=== PATIENT | male | born 1965 | race Caucasian/White ===

== ENCOUNTER 2018-05-20 12:21 | Emergency (ER) | END 2018-05-20 14:29 | disposition home or self-care (01) ==

== ENCOUNTER 2018-11-19 13:30 | Emergency (ER) | payer MEDICAID ==
[~2018-11-19] VITALS: Ht 180.3 cm; Wt 103.4 kg
[~2018-11-19 13:30] MED LIST: CAPT50TA3 PO
[2018-11-19 13:32] VITALS: Ht 180.3 cm; Wt 103.4 kg
--- NOTE | 2018-11-19 14:07 | ERD ---
ER Documentation Chief Complaint Chief Complaint right abdominal pain radiating to back since yesterday HPI 53-year-old male with hypertension presenting with complaints of right flank and right upper quadrant abdominal pain. His pain started last night but seems to have resolved by now. However he is concerned and would like evaluation. He denies any associated nausea, vomiting, fever, chills, cough, hemoptysis. No constipation or diarrhea. No melena or hematochezia. Urinating normally without pain or hematuria. He does have a history of hepatitis C that was treated. ROS All systems reviewed and are negative except as per history of present illness. Medications Home Meds Active Scripts Captopril* (Captopril*) 50 Mg Tablet, 50 MG PO BID, #60 TAB Prov:KRANTHI PEREZ MD 05/20/18 Reported Medications Captopril* (Captopril*) 50 Mg Tablet, 50 MG PO as needed, #90 TAB 05/20/18 Allergies Allergies: Coded Allergies: No Known Allergy (Unverified , 05/20/18) PMhx/Soc Hx Cardiac Disorders: Yes (HTN) Hx Miscellaneous Medical Probl: Yes (hepatitis C) Hx Alcohol Use: Yes (occasionally) Hx Substance Use: No Hx Tobacco Use: Yes (10 cigarettes/ daily) FmHx Family History: diabetes Physical Exam Vitals Vital Signs Date Temp Pulse Resp B/P (MAP) Pulse Ox O2 O2 Flow FiO2 Time Delivery Rate 11/19/18 98.5 58 16 139/97 98 Room Air 15:52 (111) 11/19/18 60 17 139/74 97 Room Air 15:24 (95) 11/19/18 97.3 68 18 142/65 96 13:32 (90) Physical Exam Const: No acute distress Head: Atraumatic Eyes: Normal Conjunctiva ENT: Normal External Ears, Nose and Mouth. Neck: Full range of motion. No meningismus. Resp: Clear to auscultation bilaterally Cardio: Regular rate and rhythm, no murmurs Abd: Soft, non tender, non distended. Normal bowel sounds Skin: No petechiae or rashes Back: No midline or flank tenderness Ext: No cyanosis, or edema Neur: Awake and alert Psych: Normal Mood and Affect Result Diagram: 11/19/18 1439 11/19/18 1439 Results 24 hrs Laboratory Tests Test 6/23/19 14:39 White Blood Count 6.9 10^3/ul Red Blood Count 5.12 10^6/ul Hemoglobin 15.5 g/dl Hematocrit 46.1 % Mean Corpuscular Volume 90.0 fl Mean Corpuscular Hemoglobin 30.3 pg Mean Corpuscular Hemoglobin Concent 33.6 g/dl Red Cell Distribution Width 13.3 % Platelet Count 262 10^3/UL Mean Platelet Volume 10.4 fl Immature Granulocytes % 0.400 % Neutrophils % 57.5 % Lymphocytes % 30.2 % Monocytes % 8.0 % Eosinophils % 2.9 % Basophils % 1.0 % Nucleated Red Blood Cells % 0.0 /100WBC Immature Granulocytes # 0.030 10^3/ul Neutrophils # 3.9 10^3/ul Lymphocytes # 2.1 10^3/ul Monocytes # 0.6 10^3/ul Eosinophils # 0.2 10^3/ul Basophils # 0.1 10^3/ul Nucleated Red Blood Cells # 0.0 10^3/ul Urine Color YELLOW Urine Clarity CLEAR Urine pH 6.0 Urine Specific [place] 1.017 Urine Ketones NEGATIVE mg/dL Urine Nitrite NEGATIVE mg/dL Urine Bilirubin NEGATIVE mg/dL Urine Urobilinogen 2+ mg/dL Urine Leukocyte Esterase NEGATIVE Laya/ul Urine Microscopic RBC 1 /HPF Urine Microscopic WBC 1 /HPF Urine Squamous Epithelial Cells FEW /HPF Urine Mucus FEW /HPF Urine Hemoglobin 1+ mg/dL Urine Glucose NEGATIVE mg/dL Urine Total Protein NEGATIVE mg/dl Sodium Level 144 mmol/L Potassium Level 4.3 mmol/L Chloride Level 106 mmol/L Carbon Dioxide Level 24 mmol/L Anion Gap 14 Blood Urea Nitrogen 17 mg/dl Creatinine 0.78 mg/dl Est Glomerular Filtrat Rate mL/min > 60 mL/min Glucose Level 83 mg/dl Calcium Level 9.7 mg/dl Total Bilirubin 0.7 mg/dl Direct Bilirubin 0.00 mg/dl Indirect Bilirubin 0.7 mg/dl Aspartate Amino Transf (AST/SGOT) 40 IU/L Alanine Aminotransferase (ALT/SGPT) 26 IU/L Alkaline Phosphatase 134 IU/L Total Protein 8.6 g/dl Albumin 4.6 g/dl Globulin 4.00 g/dl Albumin/Globulin Ratio 1.15 Lipase 93 U/L Current Medications Medications Dose Sig/Dennis Start Time Status Last (Trade) Ordered Route PRN Stop Time Admin Dose Reason Admin Famotidine 20 mg ONCE STAT 11/19/18 DC 11/19/18 (Pepcid) PO 14:24 14:37 11/19/18 14:25 40 ml ONCE STAT 11/19/18 DC Miscellaneous PO 14:24 Medication 11/19/18 14:25 (Gi Cocktail (2)) Procedures/MDM EMERGENT LABS AND DIAGNOSTIC STUDIES: Lab Results above were reviewed and interpreted by me. CBC: no anemia or evidence of infection CMP: No evidence of clinically significant electrolyte abnormality, acidosis, renal failure, hypoglycemia, liver disease, or biliary obstruction Lipase: no evidence of pancreatitis UA: no evidence of infection. Microscopic hematuria noted Initial Nursing notes reviewed. Previous Medical Records requested via the Electronic Health Record. EMERGENCY DEPARTMENT COURSE / MEDICAL DECISION MAKING: Patient is presenting with right flank and right upper quadrant pain that has resolved prior to arrival. He is afebrile with stable vitals. Abdominal exam is benign. I have a low suspicion for acute surgical abdomen. Labs were only remarkable for microscopic hematuria. Ms. possible that the patient passed a kidney stone. But I do not think he requires any further imaging or work-up. Return precautions discussed. Follow-up with PCP was recommended within the next week or 2. Patient's blood pressure was elevated (>120/80) but appears stable without evidence of hypertensive emergency or urgency. The patient was counseled about the risks of hypertension and urged to pursue outpatient monitoring and therapy within a week with their primary care physician. Departure Diagnosis: Primary Impression: Abdominal pain Abdominal location: right upper quadrant Qualified Codes: R10.11 - Right upper quadrant pain Condition: Stable MALIK MOORE MD Nov 19, 2018 14:07
[2018-11-19] MEDS ORDERED: LIDOCAINE/MYLANTA 40 ML BTL PO STA (14:24)
[2018-11-19] MEDS ORDERED: FAMOTIDINE 20 MG TAB PO STA (14:24)
[2018-11-19 15:52] VITALS: BP 139/97; PULSE 58; RESP 16
== END 2018-11-19 16:06 | disposition home or self-care (01) ==
LOC: E/R 13:30
DX: R10.11 Right upper quadrant pain (principal); I10 Essential (primary) hypertension; Z87.891 Personal history of nicotine dependence
CPT/HCPCS: 36415; 80053; 81001; 83690; 85025; Z7502; Z7610; 99283